=== PATIENT | male | born 1965 | race Caucasian/White ===

== ENCOUNTER 2019-09-28 15:37 | Emergency (ER) | payer OTHER ==
[~2019-09-28] VITALS: Ht 182.9 cm; Wt 95.5 kg
[2019-09-28 15:45] VITALS: BP 145/100
[2019-09-28] MEDS ORDERED: HYDROcodone/APAP 5/325MG 1 TAB TABLET PO ONE (16:00)
[2019-09-28] MEDS ORDERED: LIDOCAINE 1%/EPI 1:100,000 20 ML VIAL. SQ ONE (16:30)
--- NOTE | 2019-09-28 16:57 | RAD ---
EXAM: 2 views right forearm DATE: 09/28/2019 4:14 PM INDICATION: bit by dog COMPARISON: No Prior FINDINGS/ IMPRESSION: Subcutaneous gas is seen prominent at the dorsal aspect of the right forearm. No definite retained radiopaque foreign body is identified. No underlying acute osseous abnormality. Electronically signed by: Nico Gould MD (09/28/2019 4:54 PM) [email or web address]
--- NOTE | 2019-09-28 17:02 | PHYS DOC ---
General Adult EDM: Chief Complaint: ANIMAL BITE HPI: HPI: Patient is a 54 year old male who presents to the emergency department with complaints of right forearm pain and dog bites. Patient states he was at his apartment [place] when a neighbor's pit bull bit his arm. Patient states that the animal was up-to-date on all of its vaccinations. He denies any numbness, tingling, or decreased range of motion of the right upper extremity. Patient reports that he is not sure when his last tetanus shot was. He currently rates his pain a 8 out of 10 on the pain scale, he denies any alleviating factors, the pain increases if the area is touched. Review of Systems: Review of Systems: Constitutional: Denies fever or chills. [] Eyes: Denies change in visual acuity. [] HENT: Denies nasal congestion or sore throat. [] Respiratory: Denies cough or shortness of breath. [] Cardiovascular: Denies chest pain or edema. [] GI: Denies abdominal pain, nausea, vomiting, bloody stools or diarrhea. [] Musculoskeletal: Denies back pain or joint pain. [] Integument: Denies rash.; See HPI [] Neurologic: Denies headache, focal weakness or sensory changes. [] Psychiatric: Denies depression or anxiety. [] Heart Score: Risk Factors: Risk Factors: DM, Current or recent (<one month) smoker, HTN, HLP, family history of CAD, obesity. Risk Scores: Score 0 - 3: 2.5% MACE over next 6 weeks - Discharge Home Score 4 - 6: 20.3% MACE over next 6 weeks - Admit for Clinical Observation Score 7 - 10: 72.7% MACE over next 6 weeks - Early Invasive Strategies Current Medications: Current Medications Medications (Trade) Dose Ordered Sig/Jae Start Time Stop Time Status Last Admin Dose Admin Acetaminophen/ Hydrocodone Bitart (Lortab 5/325) 1 tab 1X ONCE 09/28/19 16:00 09/28/19 16:05 DC 09/28/19 16:19 1 TAB Lidocaine/ Epinephrine (LIDOCAINE 1%-EPI 1:100,000 Multi-Dose) 20 ml 1X ONCE 09/28/19 16:30 09/28/19 16:31 DC 09/28/19 16:26 20 ML Allergies: Allergies: Allergies Coded Allergies Type Severity Reaction Last Updated Verified No Known Drug Allergies 09/28/19 No Physical Exam: PE: Constitutional: Well developed, well nourished, no acute distress, non-toxic appearance. [] HENT: Normocephalic, atraumatic, bilateral external ears normal, nose normal. [] Eyes: PERRLA, EOMI, conjunctiva normal, no discharge. [] Neck: Normal range of motion, no stridor. [] Cardiovascular:Heart rate regular rhythm Lungs & Thorax: Respirations even and unlabored, no retractions, no respiratory distress Skin: Warm, dry; 0.5 cm puncture wound to the lateral proximal right forearm without active bleeding or visible foreign body; 1.5 cm puncture wound to the lateral medial right forearm without active bleeding or visible foreign body; several abrasions noted to the lateral right forearm [] Extremities: Right upper extremity: No bony tenderness, no obvious deformity, no crepitus, no cyanosis, ROM intact Neurologic: Alert and oriented X 3, no focal deficits noted. [] Psychologic: Affect normal, judgement normal, mood normal. [] EKG: EKG: [] Radiology/Procedures: Radiology/Procedures: PROCEDURE: FOREARM RIGHT EXAM: 2 views right forearm DATE: 09/28/2019 4:14 PM INDICATION: bit by dog COMPARISON: No Prior FINDINGS/ IMPRESSION: Subcutaneous gas is seen prominent at the dorsal aspect of the right forearm. No definite retained radiopaque foreign body is identified. No underlying acute osseous abnormality. Laceration Repair by me: Anesthesia: 1% lidocaine locally with epinephrine Location: Medial right forearm Tendon/Joint/Nerves: No injury Foreign body: None detected after copious irrigation and exploration with chlorhexidine surgical scrub and normal saline Technique: 2 loose Simple Interrupted Sutures with 4-0 Prolene Complexity: No subcutaneous sutures/mucosal repair/edge excision Post Closure Length: 1.5 cm Anesthesia: 1% lidocaine locally with epinephrine Location: Proximal right forearm Tendon/Joint/Nerves: No injury Foreign body: None detected after copious irrigation and exploration with chlorhexidine surgical scrub and normal saline Technique: 1 loose Simple Interrupted Sutures with 4-0 Prolene Complexity: No subcutaneous sutures/mucosal repair/edge excision Post Closure Length: 0.5 cm Patient's bleeding was easily controlled in the department and there is no indication of anemia. No evidence of compartment syndrome, neurologic injury, vascular injury, open joint, tendon laceration, or foreign body. Patient is appropriate for outpatient follow up. [] Course & Med Decision Making: Course & Med Decision Making Pertinent Labs and Imaging studies reviewed. (See chart for details) [] Fritzon Disclaimer: Rivka Disclaimer: This electronic medical record was generated, in whole or in part, using a voice recognition dictation system. Departure Departure Impression: Primary Impression: Open wound of right forearm due to dog bite Additional Impressions: Need for Tdap vaccination Abrasion of forearm, right Qualified Codes: S50.811A - Abrasion of right forearm, initial encounter Disposition: HOME, SELF-CARE Condition: STABLE Referrals: NON,STAFF (PCP) Patient Instructions: Animal Bite, [id number], VIS, Tetanus, Diphtheria (Td); Tetanus, Diphtheria, Pertussis (Tdap) - [facility] Additional Instructions: Fill the prescription and use it as directed. Keep the area clean and dry. You may take Tylenol or ibuprofen as needed for pain. Keep the dressing that was placed today on for 24 hours then change the dressing twice a day and apply antibiotic ointment to the area. Follow-up with your primary care doctor, or return to the emergency room in 10-14 days to have the sutures removed, sooner if you develop signs of infection including: redness, warmth, increased swelling, streaking, drainage, or a fever. Scripts Amoxicillin/Potassium Clav (AUGMENTIN 875-125 TABLET) 1 Each Tablet 1 TAB PO BID for 7 Days, #14 TAB 0 Refills Prov: VIRGEN VO APRN 09/28/19 Justicifation of Admission Dx: Justifications for Admission: Justification of Admission Dx: N/A VIRGEN VO APRN Sep 28, 2019 17:02
[2019-09-28] MEDS ORDERED: AMOX1TAB61 PO (18:12)
[2019-09-28] MEDS ORDERED: DIPH,PERTUSS(ACELL),TET VAC/PF 0.5 ML SYRINGE. VAX IM ONE (18:15)
== END 2019-09-28 18:45 | disposition home or self-care (01) ==
LOC: ER 15:37
DX: S51.811A Laceration without foreign body of right forearm, initial encounter (principal); W54.0XXA Bitten by dog, initial encounter; Y93.89 Activity, other specified; Y92.89 Other specified places as the place of occurrence of the external cause; Y99.8 Other external cause status
CPT/HCPCS: 12001; 73090; 99283; J3490

== ENCOUNTER 2019-10-09 08:48 | Emergency (ER) | payer OTHER ==
[~2019-10-09] VITALS: Ht 182.9 cm; Wt 95.0 kg
[~2019-10-09 08:48] MED LIST: AMOX1TAB61 PO
--- NOTE | 2019-10-09 08:58 | PHYS DOC ---
Past Medical History Past Medical History: No Pertinent History Past Surgical History: No Surgical History Smoking Status: Never Smoker Alcohol Use: None General Adult EDM: Chief Complaint: SUTURE/STAPLE REMOVAL HPI: HPI: 54-year-old male presenting to the emergency department today for suture removal. His wound is healing appropriately and he has no complaints. onset today. location right arm. duration constant. ROS neg for cp/soa/n/v. all other ros is neg. ed course: 54-year-old male presenting for suture removal. Wound is healing appropriately. Patient will be discharged after sutures are removed. Heart Score: Risk Factors: Risk Factors: DM, Current or recent (<one month) smoker, HTN, HLP, family history of CAD, obesity. Risk Scores: Score 0 - 3: 2.5% MACE over next 6 weeks - Discharge Home Score 4 - 6: 20.3% MACE over next 6 weeks - Admit for Clinical Observation Score 7 - 10: 72.7% MACE over next 6 weeks - Early Invasive Strategies Allergies: Allergies: Allergies Coded Allergies Type Severity Reaction Last Updated Verified No Known Drug Allergies 09/28/19 No Physical Exam: PE: Constitutional: Well developed, well nourished, no acute distress, non-toxic appearance. [] Right upper extremity: The patient's right forearm has 2 wounds with sutures in place. Wounds are healed appropriately. No signs of infection. Not warm to touch. EKG: EKG: [] Radiology/Procedures: Radiology/Procedures: [] Course & Med Decision Making: Course & Med Decision Making Pertinent Labs and Imaging studies reviewed. (See chart for details) [] Dragon Disclaimer: Dragyumiko Disclaimer: This electronic medical record was generated, in whole or in part, using a voice recognition dictation system. Departure Departure Impression: Primary Impression: Visit for suture removal Disposition: HOME, SELF-CARE Condition: STABLE Referrals: NON,STAFF (PCP) Justicifation of Admission Dx: Justifications for Admission: Justification of Admission Dx: JOSE Caro MD Oct 09, 2019 08:58
[2019-10-09 09:00] VITALS: BP 160/104
== END 2019-10-09 09:10 | disposition home or self-care (01) ==
LOC: ER 08:48
DX: S51.811D Laceration without foreign body of right forearm, subsequent encounter (principal); W54.0XXD Bitten by dog, subsequent encounter
CPT/HCPCS: 99281